=== PATIENT | female | born 1955 | race Caucasian/White ===

== ENCOUNTER 2018-06-26 09:33 | Outpatient (CLI) | payer MEDICARE ==
[2018-06-26] MEDS ORDERED: silver sulfadiazine cream 50gm TP ONE (11:34)
[2018-06-26] MEDS ORDERED: NAPR-1144 PO (15:18)
--- NOTE | 2018-06-26 15:19 | NUR ---
New Patient ambulated safely into [facility]. Patient admitted to outpatient wound care clinic for visit with physician. Patient assessed for conditions, medications and medical history. Dressing removed, wound cleansed. Patient showed no s/s of distress at time of assessment. 1050 at bedside accompanied by RN. Wounds assessed, as detailed in the physician progress/procedure note. Plan of care discussed with patient. Dressings placed per MD orders. Order also placed for Pneumatic compression device. Pt instructed to elevate legs at least 30 minutes 3 times a day or 10 minutes every 4 hours, also instructed check their toes. If they become purplish or blue, cool to the touch, numb or tingly, use a pair of scissors and carefully cut off the dressing. Call the Wound Center for an appointment to have the dressing reapplied. Pt instructed that decreased swelling in the legs and the potential for drainage from the wound may require them to have to schedule visits twice weekly, progressing to weekly as the swelling decreases in their legs. Pt instructed that if dressings become loose, wrinkled or falls down and if they are experiencing any pain or discomfort under their dressing cut the dressing off and call the Wound Center to have it reapplied. Pt instructed that the wrap needs to be kept dry. They may bath at a sink or there are devices designed to keep dressings dry these are available at most drug stores. If they choose to shower with a plastic bag taped over the wrap. Be sure to having another person available for assistance or placing towels on the floor of the shower or tub to eliminate the slick surface can reduce the risk of falls. Patient instructed on the signs and symptoms of infection and to call the Wound Center if any occur or to go to the ED if we are closed: Increased pain in wound Increase in drainage from the wound Redness in the skin surrounding the wound Bleeding from the wound Temperature of 101 or greater Patient instructed that the weight of their body puts a large amount of pressure on their wounds. This pressure keeps the new tissue from growing and inhibits new blood vessels from forming. Explained that, if they continue to bear weight on a body part that has a wound, the time it takes to heal the wound increases, the wound may get worse or the wound may not heal at all. Patient verbalized understanding of all discharge instructions and plan of care. Patient ambulated independently out to [facility] and is in stable condition with no sign or symptom of distress at time of discharge.
== END 2018-06-26 12:16 | disposition home or self-care (01) ==
LOC: WOUND CARE 09:33
PROVIDERS: ATTEND Surgery
DX: L97.811 Non-pressure chronic ulcer of other part of right lower leg limited to breakdown of skin (principal); L97.821 Non-pressure chronic ulcer of other part of left lower leg limited to breakdown of skin; L97.211 Non-pressure chronic ulcer of right calf limited to breakdown of skin; I89.0 Lymphedema, not elsewhere classified; I87.2 Venous insufficiency (chronic) (peripheral); Z87.891 Personal history of nicotine dependence
CPT/HCPCS: 29581; A6223; A6021; A6441